=== PATIENT | female | born 2000 | race Caucasian/White ===

== ENCOUNTER 2020-06-20 11:17 | Emergency (ER) | payer OTHER ==
--- NOTE | 2020-06-20 11:22 | TELE ---
HPI Do you have fever,cough or shortness of breath?: No - General Reason For Visit: COVID 19 TEST History Source: Patient Exam Limitations: No Limitations - History of Present Illness 06/20/20 11:20 7-year-old female no past medical history requesting [employer] testing to return to school. Patient is currently asymptomatic in this time. Rest of ROS *Physical Exam - Physical Exam 06/20/20 11:21 Unable to assess physical exam secondary to patient not having video chat Discharge Diagnosis at time of Disposition: COVID-19 - Referrals - Patient Instructions Discharge Instructions: [facility] Instructions, [facility] COVID-19 Isolation Protocol - Discharge Disposition: HOME Condition at time of Disposition: Stable
== END 2020-06-20 11:22 | disposition home or self-care (01) ==
LOC: JVIRT 11:17 → EDBD 11:17 → JVIRT 11:22
DX: Z11.59 Encounter for screening for other viral diseases (principal)
CPT/HCPCS: Q3014-GT